=== PATIENT | female | born 1960 | race Caucasian/White ===

== ENCOUNTER 2022-12-09 11:58 | Day surgery (SDC) | payer MEDICARE, MEDICAID ==
[2022-12-05 11:17] LABS: BASOPHILS % (AUTO) 0.3 % (0-1); EOSINOPHILS # (AUTO) 0.1 X10'3 (0-0.9); EOSINOPHILS % (AUTO) 1.5 % (0-6); HEMATOCRIT 43.3 % (35.0-45.0); HEMOGLOBIN 13.8 g/dl (12.0-16.0); LYMPHOCYTES % (AUTO) 26.3 % (21-51); MEAN CORPUSCULAR HEMOGLOBIN 28.7 PG (27.0-31.0); MEAN CORPUSCULAR HGB CONC 31.9 g/dL (33.0-36.5); MEAN CORPUSCULAR VOLUME 89.9 FL (78-98); MEAN PLATELET VOLUME 7.8 FL (7.4-10.4); MONOCYTES # (AUTO) 0.5 X10'3 (0-0.9); MONOCYTES % (AUTO) 6.9 % (2-12); NEUTROPHILS # (AUTO) 5.1 X10'3 (1.8-7.7); PLATELET COUNT 239 X10'3 (140-440); RED BLOOD COUNT 4.81 X10'6 (4.20-5.60); RED CELL DISTRIBUTION WIDTH 15.7 % (11.5-14.5); WHITE BLOOD COUNT 7.8 X10'3 (4.5-11.0)
[2022-12-05 11:31] LABS: APTT 26 SECONDS (22-32)
[2022-12-05 11:32] LABS: ALBUMIN 3.7 G/DL (3.4-5.0); ANION GAP 7 (8-16); BLOOD UREA NITROGEN 7 MG/DL (7-18); BUN/CREATININE RATIO 11.9 (10.0-20.0); CALCIUM 9.1 MG/DL (8.5-10.1); CHLORIDE 106 MMOL/L (99-107); CHOL/HDL RATIO 2.7 (0.00-4.99); CHOLESTEROL 162 MG/DL (0-200); CREATININE 0.59 MG/DL (0.40-0.90); GLUCOSE 99 MG/DL (70-104); HDL CHOLESTEROL 59 MG/DL (35-60); LDL CHOLESTEROL 78 MG/DL (50-100); POTASSIUM 3.9 MMOL/L (3.5-5.1); SODIUM 143 MMOL/L (135-145); TOTAL CARBON DIOXIDE 30.1 MMOL/L (24-32); TRIGLYCERIDES 168 MG/DL (20-135); eGFR > 90 ML/MIN
[2022-12-09] VITALS (9 sets, daily range): BP systolic 110–152; BP diastolic 57–82
[~2022-12-09] VITALS: Ht 152.4 cm; Wt 95.4 kg
[~2022-12-09 11:58] MED LIST: CARI350T PO
[2022-12-09] MEDS ORDERED: LORazepam 0.5 MG tablet PO PRN (12:10)
[2022-12-09] MEDS ORDERED: diphenhydrAMINE 25mg capsule PO PRN (12:10)
[2022-12-09] MEDS ORDERED: normal saline 1,000 ML IV SCH (12:10)
[2022-12-09] MEDS ORDERED: nitroGLYCERIN-Tridil 50MG/D5W 250 ML IV ONE (12:17)
[2022-12-09] MEDS ORDERED: midazolam 1 mg/ML 2ml injection ONE (12:18)
[2022-12-09] MEDS ORDERED: verapamil 2.5 mg/ml inj IV ONE (12:18)
[2022-12-09] MEDS ORDERED: fentaNYL/PF 50MCG/1 ML 2ML syringe ONE (12:18)
[2022-12-09] MEDS ORDERED: iohexol 350MG/ML 100ml bottle IV ONE (12:18)
[2022-12-09] MEDS ORDERED: heparin 1,000unit/ml 10ml vial 10 ML ONE (12:18)
[2022-12-09] MEDS ORDERED: LIDOcaine 1% (10mg/ml) 2ml vial ONE (12:18)
[2022-12-09] MEDS ORDERED: PARO20TA6 PO (12:31)
[2022-12-09] MEDS ORDERED: LOSA25TA41 PO (12:31)
[2022-12-09] MEDS ORDERED: EMPA10TA PO (12:31)
[2022-12-09] MEDS ORDERED: ATOR40TA PO (12:31)
[2022-12-09] MEDS ORDERED: CYAN250010 PO (12:31)
[2022-12-09] MEDS ORDERED: GABA300C PO (12:31)
[2022-12-09] MEDS ORDERED: ASPI81TA52 PO (12:31)
[2022-12-09] MEDS ORDERED: METO-384 PO (12:31)
[2022-12-09] MEDS ORDERED: HYDR-3972 PO (12:31)
== END 2022-12-09 18:05 | disposition home or self-care (01) ==
LOC: SSTAY O 11:58
PROVIDERS: ATTEND Student in an Organized Health Care Education/Training Program
DX: I11.0 Hypertensive heart disease with heart failure (principal); I50.22 Chronic systolic (congestive) heart failure; E78.5 Hyperlipidemia, unspecified; I44.7 Left bundle-branch block, unspecified; I48.91 Unspecified atrial fibrillation; I42.9 Cardiomyopathy, unspecified; G47.33 Obstructive sleep apnea (adult) (pediatric); G47.31 Primary central sleep apnea; Z95.0 Presence of cardiac pacemaker; Z79.82 Long term (current) use of aspirin; Z79.899 Other long term (current) drug therapy
CPT/HCPCS: 36415; 80048; 80061; 85025; 85610; 85730; 93005; 93458; 99152; C1894; J1644; J2250; J3010; J3490; J7030; Q0163; Q9967; 99153; A6258; A6449

== ENCOUNTER 2025-05-20 11:32 | Emergency (ER) | payer MEDICARE, MEDICAID ==
[~2025-05-20] VITALS: Ht 152.4 cm; Wt 79.3 kg
[~2025-05-20 11:32] MED LIST changes: +ASPI81TA52 PO; +ATOR40TA PO; -CARI350T PO; +CYAN250010 PO; +EMPA10TA PO; +GABA300C PO; +HYDR-3972 PO; +LOSA25TA41 PO; +METO-384 PO; +PARO20TA6 PO
--- NOTE | 2025-05-20 11:43 | Physician Documentation ---
History of Present Illness General Stated Complaint: CP Time Seen by MD: 11:34 Primary Medical Doctor: [facility] History of Present Illness Initial Comments Patient is a 64-year-old female with a known history of congestive heart failure and a pacemaker who states today at about 10:00 a.m. this morning she developed neck pain on the right side of her neck she describes as throbbing and intensive in nature she states pain was 8/10. She states that the pain resolved after receiving nitroglycerin by EMS. Patient states she was given aspirin by EMS as well. Patient denies having any history of a heart attack. The patient does say she has a reduced a deck ejection fraction and they do not know why. The patient has a pacemaker since February. The patient is a patient of Dr. Hull. The patient describes having diaphoresis during this episode. She denies any significant shortness of breath. Patient denies any history of similar pains. She states her pain has now resolved. Medication Reconciliation Allergies: Coded Allergies: No Known Allergies (Unverified , 05/20/25) Scheduled Aspirin (Aspirin EC), 1 TAB PO DAILY, (Reported) Atorvastatin Calcium* (Lipitor*), 1 TAB PO DAILY, (Reported) Cyanocobalamin (Vitamin B-12) (Vitamin B12), 1,000 MCG PO DAILY, (Reported) Empagliflozin (Jardiance), 1 TAB PO DAILY, (Reported) Gabapentin (Neurontin), 2 CAPSULE PO BID, (Reported) Losartan Potassium (Losartan Potassium), 1 TAB PO DAILY, (Reported) Metoprolol Succinate (Metoprolol Succinate), 1 TAB PO DAILY, (Reported) Paroxetine HCl (Paroxetine HCl), 1 TAB PO DAILY, (Reported) Scheduled PRN Hydrocodone Bit/Acetaminophen (Hydrocodon-Acetaminophn 10-325 tablet), 1 TAB PO TID PRN for pain, (Reported) Past Medical History Past Medical History: Congestive Heart Failure, Arthritis, Chronic Pain, Chronic Back Pain Alcohol Use: None Lives with: Family Lives In: Home Occupation: employed Review of Systems All Other Systems at this time: Reviewed and Negative Physical Exam Physical Exam Physical Exam VITALS: Reviewed and as above. GENERAL: Alert, no apparent distress. HEENT: Normocephalic, atraumatic, PERRL, EOMI, dry mucosa, no erythema RESPIRATORY: Lungs clear, normal breath sounds, no respiratory distress. CHEST: No accessory muscle use, no retractions CV: Regular rate, rhythm, no edema, no murmur, No: JVD GI: Soft, non-tender, bowels sounds present, no rebound, guarding, or rigidity BACK: No CVA tenderness, or swelling MUSCULOSKELETAL: No deformities, no edema SKIN: Warm and dry, no rash NEURO: Oriented x4, No motor or sensory deficit PSYCH: Normal mood and affect, no agitation Progress Results/Orders Results/Orders Orders - OHMIRA NESS MD Chest,Single View (05/20/25 11:45) Monitor (05/20/25 11:45) Saline Lock (05/20/25 11:45) Oxygen (05/20/25 11:45) Completed Orders - MIRA MCLAUGHLIN MD Chest,Single View (05/20/25 11:45) Cbc/Diff (05/20/25 11:45) BMP (05/20/25 11:45) PBNP (05/20/25 11:45) Electrocardiogram (05/20/25 11:45) Hs Troponin I W Calculations (05/20/25 11:45) Hs Troponin I W Calculations (05/20/25 13:45) Hydrocodone/Apap 10/325 ([place] 10/325mg (05/20/25 14:40) Vital Signs 05/20/25 05/20/25 05/20/25 05/20/25 11:39 11:52 13:34 14:49 Temp 98.2 Pulse 94 82 Resp 18 16 16 16 B/P (MAP) 109/81 110/68 (82) Pulse Ox 95 96 O2 Flow Rate 0 0 05/20/25 14:51 Temp 98.1 Pulse 110 Resp 16 B/P (MAP) 112/82 Pulse Ox 98 Laboratory Tests Test 05/20/25 12:03 05/20/25 13:46 White Blood Count 5.3 Red Blood Count 4.84 Hemoglobin 14.2 Hematocrit 43.0 Mean Corpuscular Volume 88.8 Mean Corpuscular Hemoglobin 29.4 Mean Corpuscular Hemoglobin Concent 33.2 Red Cell Distribution Width 14.9 H Platelet Count 203 Mean Platelet Volume 8.5 Neutrophils (%) (Auto) 64.2 Lymphocytes (%) (Auto) 29.0 Monocytes (%) (Auto) 4.9 Eosinophils (%) (Auto) 1.4 Basophils (%) (Auto) 0.5 Neutrophils # (Auto) 3.4 Lymphocytes # (Auto) 1.5 Monocytes # (Auto) 0.3 Eosinophils # (Auto) 0.1 Basophils # (Auto) 0.0 CBC Comment Sodium Level 141 Potassium Level 4.5 Chloride Level 106 Carbon Dioxide Level 30.4 Anion Gap 5 L Blood Urea Nitrogen 9 Creatinine 0.74 Estimated GFR/1.73 m2 79 BUN/Creatinine Ratio 12.2 Glucose Level 92 Calcium Level 8.3 L Troponin I High Sensitivity 5 6 Pro-B-Type Natriuretic Peptide 5376 H Albumin 3.2 L Chemistry Comments Troponin I High Sens Percent Delta 20 Troponin I Hi Sens Absolute Change 1 EKG/XRAY/CT/US/VASC/MRI Chest X-Ray : Additional Comments Patient: DONALD SINGH Medical Record: [id number] [facility] : 1960, Age: 64 Sex: Female Location: ER Patient Status: [facility] ER Service Date/Time: 05/20/25/ 5 Ordering Physician: MIRA MCLAUGHLIN MD Exam: CHEST,SINGLE VIEW CHEST RADIOGRAPH Indication: CP Technique: Single frontal view of the chest was obtained COMPARISON: None FINDINGS: Lines and Tubes: Pacemaker wires. Lungs: Clear Pleura: No effusion. No pneumothorax. Cardiomediastinal contours: Mild cardiomegaly. Bones: Unremarkable IMPRESSION: 1. Mild cardiomegaly Electronically Signed by:KRISTIN HESS MD Date & Time: 05/20/25 1209 Dictated by: KRISTIN HESS MD Dictation date and time: 05/20/25 1158 Primary Care Provider: NO PRIMARY CARE PROVIDER cc: MIRA MCLAUGHLIN MD ~ Medical Decision Making Findings Patient's EKG shows a sinus rhythm with a left axis deviation left bundle-branch block patient has a nonspecific ST abnormalities the patient's EKG was interpreted as abnormal time of the EKG interpretation was 1141. The patient's radiographer cardiac catheterization was interpreted by me as a sinus tachycardia at a rate of 100. Patient has a complaint of some neck throbbing, she had no actual chest pain the patient's symptoms have resolved patient has a history of pacemaker troponin is negative prior hospitalizations were reviewed her EKG was reviewed her chest x- ray it was or reviewed the patient is pain-free now the patient will be discharged with instructions to follow up as an outpatient patient's radiographer cardiac catheterization was interpreted as being paced and the patient's pulse oximetry was interpreted as normal and adequate. Departure Disposition: HOME / SELF CARE / HOMELESS Impression: Primary Impression: Neck pain Discharge Instructions: Heart Disease Medication Safety Referrals: NO PRIMARY CARE PROVIDER (PCP) Signature Scribe Signature: no scribe Attestation: The note accurately reflects work and decisions made by me.Mira Mclaughlin MD 05/24/25 16:20 MIRA MCLAUGHLIN MD May 20, 2025 11:43
--- NOTE | 2025-05-20 11:47 | ELECTROCARDIOGRAPH REPORT ---
[facility] Test Date: 2025-05-20 Test Time: 11:41:50 Pat Name: DONALD SINGH Department: EMERGENCY ROOM Room: Gender: F [employer] Nurse: JONO : 1960 Requested By: MIRA WALL Order Number: [id number] Reading MD: Measurements Intervals [place] Rate: 94 P: 0 NC: 200 QRS: -41 QRSD: 139 T: 125 QT: 382 QTc: 478 Interpretive Statements Sinus rhythm Left bundle branch block Please click the below link to view image of tracing.
--- NOTE | 2025-05-20 12:12 | RADIOLOGY REPORT ---
CHEST RADIOGRAPH Indication: CP Technique: Single frontal view of the chest was obtained COMPARISON: None FINDINGS: Lines and Tubes: Pacemaker wires. Lungs: Clear Pleura: No effusion. No pneumothorax. Cardiomediastinal contours: Mild cardiomegaly. Bones: Unremarkable IMPRESSION: 1. Mild cardiomegaly
[2025-05-20 13:13] LABS: MEAN PLATELET VOLUME 8.5 FL (7.4-10.4); RED CELL DISTRIBUTION WIDTH 14.9 % (11.5-14.5)
[2025-05-20 13:34] LABS: CREATININE 0.74 MG/DL (0.40-0.90); PRO BRAIN NATRIURETIC PEPTIDE 5376 PG/ML (0-125); TOTAL CARBON DIOXIDE 30.4 MMOL/L (24-32); eCRCL 54 ML/MIN; eGFR 79 ML/MIN
[2025-05-20] MEDS: HYDROcodone/acetaminophen 10/325mg tab PO ONE (14:49)
[2025-05-20 14:51] VITALS: BP 112/82; PULSE 110; RESP 16; TEMP 98.1; O2SAT 98
== END 2025-05-20 15:00 | disposition home or self-care (01) ==
LOC: ER 11:32
DX: M54.2 Cervicalgia (principal); G89.29 Other chronic pain; I50.9 Heart failure, unspecified; M19.90 Unspecified osteoarthritis, unspecified site; Z88.5 Allergy status to narcotic agent; Z95.0 Presence of cardiac pacemaker; Z79.82 Long term (current) use of aspirin; Z79.899 Other long term (current) drug therapy
CPT/HCPCS: 36415; 71045; 80048; 83880; 84484; 85025; 93005; 99285